=== PATIENT | female | born 1965 | race Caucasian/White ===

== ENCOUNTER 2023-02-15 11:53 | Emergency (ER) | payer SELFPAY ==
[2023-02-15] VITALS (11 sets, daily range): BP systolic 104–152; BP diastolic 73–108; PULSE 70–83; RESP 13–20; TEMP 36.6; O2SAT 97–100; BMI 23.3
--- NOTE | 2023-02-15 11:55 | ED.RN ---
WHEN EMS CALLED REPORT, MECHELLE WAS NEGATIVE. THEY ARE WHEELING PT BACK TO ROOM THEY STATE YOU COULD PROBABLY CALL IT NOW. DR BHAKTA WALKING PAST AND CALLED TO ROOM, STROKE ALERT CALLED AT THAT TIME.
--- NOTE | 2023-02-15 11:58 | CT_ITS ---
STUDY: STROKE PROTOCOL CT BRAIN WITHOUT CONTRAST REASON FOR EXAM: Female, 57 years old. Neuro deficit, acute, stroke suspected RADIATION DOSAGE (If Supplied By Facility): CTDIvol = ( ) mGy, DLP = ( ) mGycm TECHNIQUE: Transaxial CT imaging of the brain was performed without administration of intravenous contrast material. Individualized dose optimization techniques were used for this CT. COMPARISON: None. FINDINGS: Normal soft tissue structures. Normal calvarium. Normal size ventricles and extra-axial spaces for the patient''s age. Normal white matter tracts of the cerebral hemispheres. Normal basal ganglia and thalami. Normal brainstem. Normal cerebellum. There is no demonstrated asymmetric dense artery sign or sulcal effacement or parenchymal edema. There is no intracranial hemorrhage. There are no findings of an acute ischemic infarction. Normal visualized paranasal sinuses. ASPECTS Score for Acute Strokes: 10 CT/STROKE Brain/Head without Cont IMPRESSION: 1. Normal unenhanced CT scan of the brain. 2. Concern for stroke/positive symptomatology should be further evaluated with CT brain perfusion/CTA or MRI of the brain for further assessment. N.B. : The above Results were Read Back by Jose Gorman MD to Caryn David MD, and understanding confirmed on 02/15/2023 12:18:33 (ET). Electronically Signed: Jose Gorman MD at 12:19 EDT ,
--- NOTE | 2023-02-15 11:59 | CT_ITS ---
STUDY: CTA HEAD AND NECK WITH CONTRAST REASON FOR EXAM: Female, 57 years old. Neuro deficit, acute, stroke suspected RADIATION DOSAGE (If Supplied By Facility): CTDIvol = ( 23.65 ) mGy, DLP = ( 728.27 ) mGycm TECHNIQUE: CT angiography was performed with a multi-detector CT scanner. Data acquisition was obtained from the skull base through the vertex following intravenous administration of IV 100mL [id number]-300. MIP images were reconstructed from the axial data set. Post-processing of the angiographic images was performed, with multiplanar reformation and 3D reconstruction. Individualized dose optimization techniques were used for this CT. COMPARISON: CT of the brain dated February 15, 2023 FINDINGS: No demonstrated intraluminal thrombus or occlusion or hemodynamically significant stenosis of the major intracranial arteries. No cut off sign of the major intracranial arteries is visualized. Blood flow is fairly symmetric between the bilateral cerebral hemispheres and within the posterior fossa structures. Normal bilateral petrous carotid arteries. There is calcified plaque formation of the right cavernous carotid artery, without a cross-sectional luminal stenosis. There is calcified plaque formation of the left cavernous carotid artery, without a cross-sectional luminal stenosis. Normal right A1 segments of the anterior cerebral artery. Normal left A1 segments of the anterior cerebral artery. Normal intact anterior communicating artery (ACOM). Normal bilateral A2 segments of the anterior cerebral arteries. Normal right M1 and M2 segments of the middle cerebral arteries, with a normal M1 bifurcation. Normal left M1 and M2 segments of the middle cerebral arteries, with a normal M1 bifurcation. Normal right posterior communicating artery (PCOM). Normal left posterior communicating artery (PCOM). There is a small atretic right vertebral artery with a dominant left vertebral artery. Normal basilar artery with a normal basilar bifurcation. The visualized bilateral superior cerebellar (SCA) arteries are normal. Normal bilateral P1, P2 and visualized P3 segments of the posterior cerebral arteries. There is no demonstrated aneurysm of the [place]. There is no demonstrated abnormality of the visualized brain. AORTIC ARCH: Normal visualized aortic arch. Normal origins of the brachiocephalic, left common carotid, and left subclavian arteries. RIGHT CAROTID ARTERIES: Normal right common carotid artery (CCA). Normal right common carotid bulb. Normal origin of the right internal carotid (ICA) artery without a hemodynamically significant stenosis. Normal visualized cervical portion of the right internal carotid artery. Normal origin of the right external carotid artery (ECA). LEFT CAROTID ARTERIES: Normal left common carotid artery (CCA). Normal left common carotid bulb. Normal origin of the left internal carotid (ICA) artery without a hemodynamically significant stenosis. Normal visualized cervical portion of the left internal carotid artery. Normal origin of the left external carotid artery (ECA). VERTEBRAL ARTERIES: Normal bilateral vertebral arteries. CT/STROKE CTA Head AND Neck W/Con IMPRESSION: 1. No demonstrated intraluminal thrombus or occlusion or hemodynamically significant stenosis of the major intracranial arteries. No cut off sign of the major intracranial arteries is visualized. Blood flow is fairly symmetric between the bilateral cerebral hemispheres and within the posterior fossa structures. 2. Normal bilateral cervical carotid and vertebral arteries. N.B. : The above Results were Read Back by Jose Gorman MD to Caryn David MD, and understanding confirmed on 02/15/2023 12:32:11 (ET). Electronically Signed: Jose Gorman MD at 12:33 EDT ,
--- NOTE | 2023-02-15 12:00 | ED.VIS.STROK ---
HPI History of Present Illness Chief Complaint: Stroke Alert Informant: patient Onset/Context/Timing Onset: Today Narrative Narrative: Patient presents via EMS with right-sided paresthesias and weakness. Patient states that she was at work this morning. Approximately half hour prior to EMS arrival she started not feeling well and coworkers states that she did not look right. She apparently had some garbled speech. She has a right-sided facial droop and paresthesias throughout the right side. Stroke alert was called at the time of my initial evaluation. PFSH [facility] Medical History (Updated 02/15/23 @ 15:[address] Leslie Webb MD) Asthma Home Medications NK 02/15/23 [History Last Taken Unknown] Allergy/AdvReac Type Severity Reaction Status Date / Time No Known Allergies Allergy Verified 02/15/23 12:30 Surgical History Hx of cholecystectomy Social History Smoking Status: Unknown if ever smoked ROS ROS ED Constitutional Constitutional ED: Denies chills or fever(s) Eyes Eyes: Denies change in vision or discharge from eye(s) ENT ENT ED: Denies discharge from eye(s), rhinorrhea or sore throat Cardiovascular Cardiovascular: Reports chest pain; Denies palpitations Respiratory/Chest Respiratory/Chest: Denies cough or dyspnea Gastrointestinal Gastrointestinal: Denies abdominal pain, nausea or vomiting Genitourinary Genitourinary ED: Denies dysuria Musculoskeletal Musculoskeletal: Denies back pain or extremity pain Integumentary Denies Abrasions or rash Neurologic Neurologic: Reports paresthesias and weakness; Denies headache(s) Psychiatric Psychiatric: Denies anxiety or depression Allergic/Immunologic Allergic/Immunologic ED: Denies lip swelling or urticaria EXAM Physical Exam Const Vital Signs: 02/15/23 12:02 02/15/23 12:05 02/15/23 12:08 Temperature 97.8 F Temperature Source Temporal Pulse Rate 82 83 Respiratory Rate 18 18 Blood Pressure 152/108 H 152/108 H Blood Pressure Mean 122 122 Pulse Ox 100 100 Oxygen Delivery Method Room Air Room Air Room Air 02/15/23 12:16 02/15/23 12:45 02/15/23 13:00 Temperature Temperature Source Pulse Rate 77 75 73 Respiratory Rate 19 H 15 13 Blood Pressure 138/88 H 134/90 H 134/90 H Blood Pressure Mean 104 104 104 Pulse Ox 100 100 97 Oxygen Delivery Method Room Air Room Air Room Air 02/15/23 13:00 02/15/23 13:00 02/15/23 13:15 Temperature 98 F 98 F Temperature Source Temporal Temporal Pulse Rate 74 83 77 Respiratory Rate 16 15 20 H Blood Pressure 134/90 H 134/90 H 127/89 H Blood Pressure Mean 104 104 101 Pulse Ox 99 98 100 Oxygen Delivery Method Room Air Room Air Room Air Positive well nourished and well developed General Appearance ED: well developed HEENT Reports moist mucous membranes Eyes PERRL and EOMs intact bilaterally Chest Wall inspection of chest normal and palpation of chest normal Resp normal respiratory effort and clear to auscultation bilaterally Cardio Rate: regular rate Rhythm: regular rhythm GI soft to palpation Extremity normal to inspection Neuro oriented x3 Neuro Narrative: See NIH stroke scale NIHSS NIHSS Initial: 1a Level of Consciousness: 0 1b LOC Questions (Score 2 if aphasic/stupor): 0 1c LOC Commands (Only score 1st attempt): 0 2 Best Gaze (If aphasic, use reflexive mvmts.): 0 3 Visual: 0 4 Facial Palsy: 1 5 Motor Arm Right (UN = amputation/fusion): 1 5 Motor Arm Left: 0 6 Motor Leg Right: 0 6 Motor Leg Left: 0 7 Limb ataxia (Only + if out of proportion): 0 8 Sensory (Aphasia/stupor=0 or 1, coma=2): 1 9 Best Language: 0 10 Dysarthria (mute, coma=2, intubated=UN): 1 11 Extinction and Inattention (only scored if +): 0 Total Score: 4 MDM MDM MDM Narrative Medical decision making narrative: Stroke alert was initiated on my initial evaluation. Patient sent for CT scan of the head along with CTA of the head and neck. Labwork obtained to evaluate for leukocytosis, anemia, and electrolyte derangement. EKG obtained to evaluate for cardiac arrhythmia/ischemia. Chest x-ray obtained to evaluate for acute lung pathology, cardiac size, or mediastinal abnormality. History & Record Review Discussion w/independent historian: EMS personnel and Patient Lab Data Attestation: I reviewed the patient's lab results. Labs: Laboratory Results - last 24 hr 02/15/23 02/15/23 11:58 12:14 WBC 7.5 RBC 4.32 Hgb 13.0 Hct 39.5 MCV 91.4 MCH 30.1 MCHC 32.9 RDW Std Deviation 40.5 RDW Coeff of Mihaela 12.1 Plt Count 175 MPV 12.0 Immature Gran % (Auto) 0.300 Neut % (Auto) 69.3 Lymph % (Auto) 23.0 [place] % (Auto) 6.3 Eos % (Auto) 0.4 Baso % (Auto) 0.7 Absolute Neuts (auto) 5.2 Absolute Lymphs (auto) 1.72 Nucleated RBC % 0 PT 13.7 INR 1.1 APTT 27.5 Sodium 139 Potassium 3.6 Chloride 107 Carbon Dioxide 26.0 Anion Gap 6 BUN 14 Creatinine 0.73 Estim Creat Clear Calc 78.35 Est GFR (MDRD) Af Amer 107 Est GFR (MDRD) Non-Af 88 BUN/Creatinine Ratio 19.3 Glucose 93 Calcium 8.8 Troponin I High Sens < 3 L POC Glucose 78 Radiography Chest X-Ray - ED: 1 View, Read by ED Physician, Normal, Heart, Lungs and Mediastinum Diagnostic Testing: Clinical Impression(s) from Imaging Studies Brain CT 02/15/23 11:58 IMPRESSION: 1. Normal unenhanced CT scan of the brain. 2. Concern for stroke/positive symptomatology should be further evaluated with CT brain perfusion/CTA or MRI of the brain for further assessment. N.B. : The above Results were Read Back by Jose Gorman MD to Caryn David MD, and understanding confirmed on 02/15/2023 12:18:33 (ET). Electronically Signed: Jose Gorman MD at 12:19 EDT Reading Location ID and State: [facility] / [place] , Service support , ADDENDUM: 02/15/23 1226 IMPRESSION: 1. Normal unenhanced CT scan of the brain. 2. Concern for stroke/positive symptomatology should be further evaluated with CT brain perfusion/CTA or MRI of the brain for further assessment. N.B. : The above Results were Read Back by Jose Gorman MD to Caryn David MD, and understanding confirmed on 02/15/2023 12:18:33 (ET). Electronically Signed: Jose Gorman MD at 12:19 EDT , Head/Neck CTA 02/15/23 11:59 IMPRESSION: 1. No demonstrated intraluminal thrombus or occlusion or hemodynamically significant stenosis of the major intracranial arteries. No cut off sign of the major intracranial arteries is visualized. Blood flow is fairly symmetric between the bilateral cerebral hemispheres and within the posterior fossa structures. 2. Normal bilateral cervical carotid and vertebral arteries. N.B. : The above Results were Read Back by Jose Gorman MD to Caryn David MD, and understanding confirmed on 02/15/2023 12:32:11 (ET). Electronically Signed: Jose Gorman MD at 12:33 EDT Reading Location ID and State: [id number] , Service support , ADDENDUM: 02/15/23 1240 IMPRESSION: 1. No demonstrated intraluminal thrombus or occlusion or hemodynamically significant stenosis of the major intracranial arteries. No cut off sign of the major intracranial arteries is visualized. Blood flow is fairly symmetric between the bilateral cerebral hemispheres and within the posterior fossa structures. 2. Normal bilateral cervical carotid and vertebral arteries. N.B. : The above Results were Read Back by Jose Gorman MD to Caryn David MD, and understanding confirmed on 02/15/2023 12:32:11 (ET). Electronically Signed: Jose Gorman MD at 12:33 EDT Reading Location ID and State: [address] [place] [address] , Service support , Chest X-Ray 02/15/23 12:41 IMPRESSION: Normal x-ray examination of the chest. Electronically Signed: Jose Gorman MD at 13:37 EDT , EKG Initial EKG: Attestation: I personally reviewed and interpreted this EKG as follows: Interpretation: Sinus Rhythm (Sinus 84 with no acute ischemia.) Treatment and Re-Evaluation Narrative: CT of the head along with CTA of the head and neck reveals no acute abnormalities. Neurologist from [facility] beamed in and evaluated the patient. He stated that because the patient was still having symptoms that were bothersome to her we could offer her TNK. After discussing the pros and cons patient declines TNK at this time. Patient is concerned that her symptoms are secondary to a pinched nerve in her neck as she has had neck and jaw pain with some facial tingling in the past. I advised her that this could not be confirmed without an MRI and by the time that was performed we would be unable to give her TNK if it was still needed. I also advised her that the pinched nerve in her neck would not give her the paresthesias that she was having in her right arm and right leg. She voices understanding. CBC and chemistry studies are unremarkable. Troponin is less than 3. EKG is sinus rhythm with no ischemia. Chest x-ray per my interpretation reveals no acute abnormalities. I will speak with hospitalist regarding admission for remainder of stroke work-up. Patient was seen by the hospitalist and arrangements were made for observation. I was notified by nursing staff at 1530 that the patient is now wanting to sign out AGAINST MEDICAL ADVICE. She understands the risks and does not want to stay for further testing. I will have her sign out AGAINST MEDICAL ADVICE. Discharge Plan Triage Chief Complaint: Stroke Alert Other Complaint: Neuro S/Sx ED Provider: Caryn David Dx/Rx/DC Orders Clinical Impression: Acute CVA (cerebrovascular accident) Primary Care Provider: Care Physician,No Primary Disposition Disposition: Acute Care Hospital [facility]
[2023-02-15 12:26] LABS: Absolute Lymphocyte Count 1.72 X10^3/uL (0.83-4.51); Absolute Neutrophil Count 5.2 X10^3/uL (2.0-7.7); Basophil# 0.05 X10^3/uL; Basophil% 0.7 % (0-1); Eosinophil# 0.03 X10^3/uL; Eosinophils% 0.4 % (0-5); Hematocrit 39.5 % (37-47); Lymphocyte # 1.72 X10^3/ul (0.83-4.51); Mean Corp Hgb Conc 32.9 g/dL (32-36); Mean Corpuscular Hgb 30.1 pg (27.0-32.0); Mean Corpuscular Volume 91.4 fL (81-99); Monocyte# 0.47 X10^3/uL; Monocyte% 6.3 % (0-10); NRBC Flagged by Analyzer 0 % (0-5); Neutrophil # 5.19 X10^3/uL (2.7-7.7); Neutrophil % 69.3 % (47-70); Platelet Count 175 K/mm3 (150-450); RBC Distribution Width CV 12.1 % (11.6-14.6); RBC Distribution Width SD 40.5 fl (35.1-43.9); Red Blood Count 4.32 M/mm3 (4.2-5.4); White Blood Count 7.5 K/mm3 (4.4-11.0)
--- NOTE | 2023-02-15 12:29 | ED.RN ---
PT REFUSING TNK AT THIS TIME. DR BHAKTA AT BEDSIDE
[2023-02-15 12:32] LABS: Bedside Glucose 78 mg/dL (74-106)
[2023-02-15 12:32] LABS: International Normalized Ratio 1.1; Partial Thromboplast Time 27.5 Seconds (24.1-36.2); Prothrombin Time (Protime)PT. 13.7 SECONDS (11.7-14.9)
--- NOTE | 2023-02-15 12:34 | ED.RN ---
PT ALSO REFUSING CATHETER AT THIS TIME
--- NOTE | 2023-02-15 12:41 | RAD_ITS ---
STUDY: X-RAY CHEST REASON FOR EXAM: Female, 57 years old. Neuro deficit, acute, stroke suspected TECHNIQUE: Single AP portable view of the chest. COMPARISON: None. FINDINGS: The lungs are clear and expanded. There is no demonstrated pleural abnormality. Normal size heart. Normal mediastinum and deisi. Normal visualized pulmonary arteries. Normal visualized aortic arch and descending thoracic aorta. Normal visualized thoracic spine. Normal visualized ribs, clavicles, and shoulders. There is no demonstrated abnormality of the visualized soft tissue structures of the upper abdomen. RAD/Chest 1 View IMPRESSION: Normal x-ray examination of the chest. Electronically Signed: Jose Gorman MD at 13:37 EDT ,
[2023-02-15 12:43] LABS: Anion Gap 6 (5-15); BUN 14 mg/dL (7-18); BUN/Creat Ratio 19.3 RATIO (10-20); Calcium,Total 8.8 mg/dL (8.5-10.1); Chloride 107 mmol/L (98-107); Creatinine, Serum 0.73 mg/dL (0.55-1.02); EST Glomerular Filtration Rate 88 mL/min (>60); Est Glom Filt Rate - Afr Amer 107 mL/min (>60); Estimated Creatinine Clearance 78.35 ml/min; Glucose 93 mg/dL (74-106); Potassium 3.6 mmol/L (3.5-5.1); Sodium Level 139 mmol/L (136-145); Troponin-I HS < 3 pg/mL (3.0-54.0)
[2023-02-15] MEDS: 0.9% Normal Saline 1,000 ML 100 ML IV (13:05)
--- NOTE | 2023-02-15 15:08 | HP.PCM.HOS_ITS ---
HPI - General General Date of Admission: 02/15/23 Date of Service: 02/15/23 Chief Complaint: R sided numbness HPI Narrative Giulia Miller is a 57-year-old female who presented to [facility] on 02/15/2023 with right-sided paresthesias. 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 This is happened multiple times intermittently for a long period of time and she thought it was a pinched nerve but she was told that she was acting different and that the right side of her face seemed kind of swollen and droopy. That was around 11:00 this morning. She presented to the ED and had some slight dysarthria with mild right-sided facial droop as well as paresthesias of right upper and lower extremities. She was a stroke call and had an NIH of 4, she was seen by teleneurology who recommended tenecteplase however after ED physician discussed risks and benefits with her she refused administration despite being counseled and informed that she would phase out of the window for intervention and patient verbalized understanding. Hospitalist consulted for admission for stroke work-up. Evaluated patient with family at bedside and she reiterated that she did not want tenecteplase. She said that she has been having a lot of stress at work and that around 11 AM someone told her that her right face was puffy and droopy and that she was not talking right and she noted at the time that she was having some pain in her neck and right side of jaw still which she attributes to a pinched nerve and is something that has been chronic. EMS was called and she was brought to the ED which proceeded as above. At time of exam patient denies any further paresthesias, feels that her face and her talking are back to normal. Does still have some pain in her neck and jaw but had no other complaints. Does endorse that she has hot flashes and will feel nauseous but this has been off and on for the past couple of years and is not new. Also reports chronic problems with tingling in both of her hands and think she has carpal tunnel syndrome. Additionally noted that a few weeks ago she had bright spots in her vision on both sides when she was overly hot while working and had to go home. Denies any other complaints. [facility] Medical History (Updated 02/15/23 @ 15:[address] Leslie Webb MD) Asthma Home Medications NK 02/15/23 [History Last Taken Unknown] Allergy/AdvReac Type Severity Reaction Status Date / Time No Known Allergies Allergy Verified 02/15/23 12:30 Surgical History Hx of cholecystectomy Social History Smoking Status: Unknown if ever smoked ROS ROS Narrative General: Denies fever/chills HENT: Denies headache, denies stuffy nose, denies sore throat EYES: Had some bright spots in her vision several weeks ago Resp: Denies cough, denies shortness of breath Cardiac: Denies chest pain GI: Denies abdominal pain, denies changes in bowel, denies nausea/vomiting : Denies changes in urination Extremity: Denies swelling currently MSK: Denies weakness Neuro: Reports some chronic tingling in hands, denies present paresthesias in upper or lower extremities or face Heme: Denies any bleeding or bruising Skin: Denies rashes Psychiatric: No complaints voiced Vital Signs Vital Signs Vital Signs: 02/15/23 12:02 02/15/23 12:05 02/15/23 12:08 Temperature 97.8 F Temperature Source Temporal Pulse Rate 82 83 Respiratory Rate 18 18 Blood Pressure 152/108 H 152/108 H Blood Pressure Mean 122 122 Pulse Ox 100 100 Oxygen Delivery Method Room Air Room Air Room Air 02/15/23 12:16 02/15/23 12:45 02/15/23 13:00 Temperature Temperature Source Pulse Rate 77 75 73 Respiratory Rate 19 H 15 13 Blood Pressure 138/88 H 134/90 H 134/90 H Blood Pressure Mean 104 104 104 Pulse Ox 100 100 97 Oxygen Delivery Method Room Air Room Air Room Air 02/15/23 13:00 02/15/23 13:00 02/15/23 13:15 Temperature 98 F 98 F Temperature Source Temporal Temporal Pulse Rate 74 83 77 Respiratory Rate 16 15 20 H Blood Pressure 134/90 H 134/90 H 127/89 H Blood Pressure Mean 104 104 101 Pulse Ox 99 98 100 Oxygen Delivery Method Room Air Room Air Room Air Weight Weight: 63.5 kg Body Mass Index (BMI) 23.3 Physical Exam Narrative General: Alert, oriented, no apparent distress HEENT: Atraumatic, normocephalic Eyes: Anicteric, normal conjunctiva, extraocular movements intact, pupils equal Neck: Supple Respiratory: Clear to auscultation bilaterally, normal respiratory effort Cardiovascular: Regular rate and rhythm GI: Soft, nontender, nondistended Extremities: No edema Musculoskeletal: Strength 5 out of 5 in right upper extremity, 5 out of 5 left upper extremity, 5 out of 5 right lower extremity, 5 out of 5 left lower extremity Neuro: Very slight minimal flattening of right-sided nasolabial fold but otherwise cranial nerves II through XII intact, [id number] without significant difficulty bilaterally Skin: No rashes appreciated Psych: Cooperative Results Lab / Micro Data 02/15/23 12:14 02/15/23 12:14 Labs: Laboratory Results - last 24 hr 02/15/23 11:58: POC Glucose 78 02/15/23 12:14: WBC 7.5, RBC 4.32, Hgb 13.0, Hct 39.5, MCV 91.4, MCH 30.1, MCHC 32.9, RDW Std Deviation 40.5, RDW Coeff of Mihaela 12.1, Plt Count 175, MPV 12.0, Immature Gran % (Auto) 0.300, Neut % (Auto) 69.3, Lymph % (Auto) 23.0, Dunn % (Auto) 6.3, Eos % (Auto) 0.4, Baso % (Auto) 0.7, Absolute Neuts (auto) 5.2, Absolute Lymphs (auto) 1.72, Nucleated RBC % 0, PT 13.7, INR 1.1, APTT 27.5, Sodium 139, Potassium 3.6, Chloride 107, Carbon Dioxide 26.0, Anion Gap 6, BUN 14, Creatinine 0.73, Estim Creat Clear Calc 78.35, Est GFR (MDRD) Af Amer 107, Est GFR (MDRD) Non-Af 88, BUN/Creatinine Ratio 19.3, Glucose 93, Calcium 8.8, Troponin I High Sens < 3 L Rad[address] Impression Brain CT 02/15/23 11:58 IMPRESSION: 1. Normal unenhanced CT scan of the brain. 2. Concern for stroke/positive symptomatology should be further evaluated with CT brain perfusion/CTA or MRI of the brain for further assessment. N.B. : The above Results were Read Back by Jose Gorman MD to Caryn aDvid MD, and understanding confirmed on 02/15/2023 12:18:33 (ET). Electronically Signed: Jose Gorman MD at 12:19 EDT , ADDENDUM: 02/15/23 1226 IMPRESSION: 1. Normal unenhanced CT scan of the brain. 2. Concern for stroke/positive symptomatology should be further evaluated with CT brain perfusion/CTA or MRI of the brain for further assessment. N.B. : The above Results were Read Back by Jose Gorman MD to Caryn David MD, and understanding confirmed on 02/15/2023 12:18:33 (ET). Electronically Signed: Jose Gorman MD at 12:19 EDT , Head/Neck CTA 02/15/23 11:59 IMPRESSION: 1. No demonstrated intraluminal thrombus or occlusion or hemodynamically significant stenosis of the major intracranial arteries. No cut off sign of the major intracranial arteries is visualized. Blood flow is fairly symmetric between the bilateral cerebral hemispheres and within the posterior fossa structures. 2. Normal bilateral cervical carotid and vertebral arteries. N.B. : The above Results were Read Back by Jose Gorman MD to Caryn David MD, and understanding confirmed on 02/15/2023 12:32:11 (ET). Electronically Signed: Jose Gorman MD at 12:33 EDT , ADDENDUM: 02/15/23 1240 IMPRESSION: 1. No demonstrated intraluminal thrombus or occlusion or hemodynamically significant stenosis of the major intracranial arteries. No cut off sign of the major intracranial arteries is visualized. Blood flow is fairly symmetric between the bilateral cerebral hemispheres and within the posterior fossa structures. 2. Normal bilateral cervical carotid and vertebral arteries. N.B. : The above Results were Read Back by Jose Gorman MD to Caryn David MD, and understanding confirmed on 02/15/2023 12:32:11 (ET). Electronically Signed: Jose Gorman MD at 12:33 EDT , Chest X-Ray 02/15/23 12:41 IMPRESSION: Normal x-ray examination of the chest. Electronically Signed: Jose Gomran MD at 13:37 EDT , Assessment & Plan Assessment/Plan (1) Neurologic abnormality: PLAN: Plan #Dysarthria, right-sided facial droop, right upper and lower extremity paresthesias -Admit to tele -on exam very slight minor flattening of right-sided nasolabial fold but otherwise no acute abnormalities -CT head w/ no acute abnormality and CTA head and neck with no large thrombus -Seen by teleneurology in the ED who recommended tenecteplase but patient refused due to not wanting the risk of bleeding no matter how slight -MRI head -NIH q4hr -asa, statin -Echo w/ bubble study -PT/OT/Speech eval -Hold BP medications to allow for permissive hypertension for 24 hours unless SBP greater than 220 or DBP greater than 120 or until stroke is ruled out #R sided neck pain and jaw pain -Patient reports that this has been intermittent over long period of time but will be severe enough at times to bring her to tears -We will obtain cervical spine MRI in addition to the MRI head #DVT ppx: Lovenox subcu Leslie Webb MD Time spent in the patient's overall evaluation,decision-making process, review of diagnostic data, adjustment of management, discussion with other providers, nursing nursing and ancillary staff involved in patient's care documentation, 56 minutes Charges/Coding Visit Charges Inpatient E&M: 90064 Init Hosp L2
--- NOTE | 2023-02-15 15:38 | CM.ED ---
Social Work Referral Source: Stroke Alert Referral Reason: emotional support SW attempted to met with patient's family to provide emotional support, no family at bedside. SW available if needs arise. Hattie BABCOCK, ELIDA
--- NOTE | 2023-02-15 15:38 | PCM.HOSP.N ---
Hospitalist Note Pt seen and evaluated in ED. Admission orders completed for observation status and H&P completed. Spoke with PCU after that pt was seen and okay for floor and presently just waiting on room to be cleaned for transfer to floor. Prior to pt being transferred to the floor she left AMA from the ED.
--- NOTE | 2023-02-15 15:39 | ED.RN ---
PT REFUSING TO BE ADMITTED AND WANTS TO LEAVE. DR BHAKTA MADE AWARE.
== END 2023-02-15 15:49 | disposition left against medical advice (07) ==
PROVIDERS: Emergency Medicine; Emergency Provider Internal Medicine; Visit Provider Internal Medicine
DX: I63.9 Cerebral infarction, unspecified (principal); Z90.49 Acquired absence of other specified parts of digestive tract; Z53.29 Procedure and treatment not carried out because of patient's decision for other reasons
CPT/HCPCS: 70450; 70496; 70498; 71045; 80048; 82962; 84484; 85025; 85610; 85730; 93005; 99285; J3101; J7030; Q9967; A4216